=== PATIENT | male | born 1955 | race Caucasian/White ===

== ENCOUNTER 2019-03-14 08:54 | Inpatient (IN) | payer MEDICARE ==
--- NOTE | 2019-03-14 09:34 | ER Document Report ---
HPI - HPI Time Seen by Provider: 03/14/19 09:08 Pain Level: 3 Vertical Provider Document - INFECTION CONTROL TRAVEL OUTSIDE OF THE [place] IN LAST 30 DAYS: No Course - Vital Signs Vital signs: Temp Pulse Resp BP Pulse Ox 97.7 F 90 20 152/61 H 92 03/14/19 09:01 03/14/19 09:01 03/14/19 09:01 03/14/19 09:01 03/14/19 09:01 Discharge - Discharge Referrals: LOCAL,NO [Primary Care Provider] - Follow up as needed
--- NOTE | 2019-03-14 09:43 | ER Document Report ---
ED Medical Screen (RME) - General Chief Complaint: Fall Injury Stated Complaint: FALL Time Seen by Provider: 03/14/19 09:08 Primary Care Provider: ARLENE OCONNELL [Primary Care Provider] - Follow up as needed Notes: Patient is a 63-year-old male brought in by ambulance who presents emergency department with a chief complaint of left rib pain. He states that his whole left side of his chest hurts. He fell on on the armrest of a couch. He states that he has had a hard time breathing since then. States that this morning he started breathing differently. Admits to having cold chills and sweats yesterday. Friends were at bedside state that he is breathing differently today than he was yesterday and sounds a little more "gurgly" in his breath sounds. Patient is an every day smoker and he smokes 1 pack/day. He states that he used to smoke 4 packs a day. Patient has a history of myocardial infarction 2016. He has not seen a primary care doctor in over 30 years. Exam: Coarse breath sounds noted throughout all lung mack. I have greeted and performed a rapid initial assessment of this patient. A comprehensive ED assessment and evaluation of the patient, analysis of test results and completion of medical decision making process will be conducted by an additional ED providers. TRAVEL OUTSIDE OF THE [place] IN LAST 30 DAYS: No - Related Data Allergies/Adverse Reactions: No Known Allergies Allergy (Verified 03/14/19 08:55) Physical Exam - Vital signs Vitals: Temp Pulse Resp BP Pulse Ox 97.7 F 90 20 152/61 H 92 03/14/19 09:01 03/14/19 09:01 03/14/19 09:01 03/14/19 09:01 03/14/19 09:01 Course - Vital Signs Vital signs: Temp Pulse Resp BP Pulse Ox 97.7 F 90 20 152/61 H 92 03/14/19 09:01 03/14/19 09:01 03/14/19 09:01 03/14/19 09:01 03/14/19 09:01 Doctor's Discharge - Discharge Referrals: ARLENE OCONNELL [Primary Care Provider] - Follow up as needed
--- NOTE | 2019-03-14 10:07 | RADIOLOGY REPORT (SQ) ---
EXAM DESCRIPTION: RIBS LEFT W/PA CHEST COMPLETED DATE/TIME: 03/14/2019 9:50 am REASON FOR STUDY: fall; rib pain COMPARISON: None. TECHNIQUE: Frontal view of the chest and additional views of the left ribs acquired. NUMBER OF VIEWS: Three view. LIMITATIONS: None. FINDINGS: FRONTAL CXR: No pneumothorax. No pleural effusion. No atelectasis or infiltrates. RIBS: No displaced rib fractures. No lytic or blastic bony lesions. OTHER: No other significant finding. IMPRESSION: NO PNEUMOTHORAX. NO DISPLACED RIB FRACTURES. COMMENT: SITE OF TRAUMA/COMPLAINT MARKED/STAMP COMPLETED: No TECHNICAL DOCUMENTATION: JOB ID: [id number] QA on Request- All Rights Reserved Reading location - IP/workstation name: [email or web address]
[2019-03-14] MEDS ORDERED: IPRATROPIUM/ALBUTEROL 0.5-2.5 MG/3 ML AMPUL NEB ONE ×2 (10:15→14:53)
[2019-03-14] MEDS ORDERED: ONDANSETRON HCL INJ/PF 4 MG/2 ML SDV IV ONE (10:15)
[2019-03-14] MEDS ORDERED: MORPHINE SULFATE 10 MG/ML INJ IV ONE (10:15)
[2019-03-14] MEDS ORDERED: KETOROLAC TROMETHAMINE INJ/PF 30 MG/1 ML SDV IV ONE (10:16)
--- NOTE | 2019-03-14 10:51 | RADIOLOGY REPORT (SQ) ---
EXAM DESCRIPTION: CT CHEST WITHOUT COMPLETED DATE/TIME: 03/14/2019 10:30 am REASON FOR STUDY: chest pain rhonchi COMPARISON: Chest radiograph TECHNIQUE: CT scan performed of the chest without intravenous contrast. Images reviewed with lung, soft tissue and bone windows. Reconstructed coronal and sagittal MPR images reviewed. All images st ored on PACS. All CT scanners at this facility use dose modulation, iterative reconstruction, and/or weight based d osing when appropriate to reduce radiation dose to as low as reasonably achievable (ALARA). [facility]: Dose Right [facility]: CareDose [facility]: Dose Right [facility]: Teradose 4D [facility]: Smart Crucell RADIATION DOSE: CT Rad equipment meets quality standard of care and radiation dose reduction techniq ues were employed. CTDIvol: 17.6 mGy. DLP: 665 mGy-cm. mGy. LIMITATIONS: No technical limitations. FINDINGS: LUNGS AND PLEURA: There are patchy parenchymal opacities with tree-in-bud appearance at carlos th lung bases. No effusions. No pneumothorax. HILAR AND MEDIASTINAL STRUCTURES: No identified masses or abnormal nodes. No obvious aneurysm. HEART AND VASCULAR STRUCTURES: No aneurysm. No pericardial effusion. Moderate coronary artery calci fication. UPPER ABDOMEN: No significant findings. Limited exam. THYROID AND OTHER SOFT TISSUES: No masses. No adenopathy. BONES: No significant finding. HARDWARE: None in the chest. OTHER: No other significant findings. IMPRESSION: Bibasilar parenchymal opacities with a typical appearance of an inflammatory or infectio us process. No identified rib fractures. Moderate coronary artery calcification. TECHNICAL DOCUMENTATION: JOB ID: [id number] Quality ID # [id number]: Final reports with documentation of one or more dose reduction techniques (e.g., Au tomated exposure control, adjustment of the mA and/or kV according to patient size, use of iterative reconstruction technique) 2010 [employer] All Rights Reserved Reading location - IP/workstation name: [email or web address]
[2019-03-14 10:58] LABS: ABSOLUTE LYMPHOCYTES (AUTO) 1.1 10^3/uL (0.5-4.7); ABSOLUTE MONOCYTES (AUTO) 0.9 10^3/uL (0.1-1.4); ABSOLUTE NEUT (AUTO) 12.4 10^3/uL (1.7-8.2); BASOPHILS % (AUTO) 0.3 % (0-2); EOSINOPHILS % (AUTO) 0.2 % (0-6); HEMATOCRIT 45.5 % (37.9-51.0); LYMPHOCYTES % (AUTO) 7.6 % (13-45); MEAN CORPUSCULAR HEMOGLOBIN 30.4 pg (27.0-33.4); MEAN CORPUSCULAR VOLUME 92 fl (80-97); MONOCYTES % (AUTO) 6.4 % (3-13); PLATELET COUNT 212 10^3/uL (150-450); RED BLOOD COUNT 4.95 10^6/uL (4.35-5.55); RED CELL DISTRIBUTION WIDTH 14.2 % (11.5-14.0); SEGMENTED NEUTROPHILS % (AUTO) 85.5 % (42-78); TOTAL CELLS COUNTED % (AUTO) 100 %; WHITE BLOOD COUNT 14.5 10^3/uL (4.0-10.5)
[2019-03-14 11:00] LABS: ALANINE AMINOTRANSFERASE 38 U/L (21-72); ALBUMIN 4.1 g/dL (3.5-5.0); ALKALINE PHOSPHATASE 75 U/L (38-126); ANION GAP 13 (5-19); ASPARTATE AMINO TRANSFERASE 34 U/L (17-59); BILIRUBIN,DIRECT 0.5 mg/dL (0.0-0.4); BLOOD UREA NITROGEN 17 mg/dL (7-20); CARBON DIOXIDE 27 mmol/L (22-30); CHLORIDE 101 mmol/L (98-107); CREATINE KINASE 410 U/L (55-170); GLUCOSE 121 mg/dL (75-110); POTASSIUM 4.4 mmol/L (3.6-5.0)
[2019-03-14 11:11] LABS: CREATINE KINASE MB 3.42 ng/mL (<4.55)
[2019-03-14 11:16] LABS: TROPONIN I < 0.012 ng/mL
--- NOTE | 2019-03-14 12:51 | ER Document Report ---
ED General - General Chief Complaint: Fall Injury Stated Complaint: FALL Time Seen by Provider: 03/14/19 09:08 Mode of Arrival: Ambulatory Information source: Patient Notes: 63-year-old male with a 20+ pack year smoking history presents with left-sided rib pain that started 3 days prior to arrival. Patient states that he tripped and fell striking his left chest wall against an arm chair. He denies head injury, loss of consciousness. He states since that time he has had pain with deep inspiration, coughing. Patient does smoke 1 pack/day states that this is a decrease from 4 packs/day. Patient has had associated productive cough, shortness of breath, chills. TRAVEL OUTSIDE OF THE [place] IN LAST 30 DAYS: No - HPI Onset: Other Onset/Duration: Gradual, Persistent, Worse Quality of pain: Stabbing, Throbbing Severity: Severe Pain Level: 3 Associated symptoms: Body/muscle aches, Chest pain, Productive cough, Hurts to breath, Shortness of breath. denies: Leg swelling, Nausea, Vomiting Exacerbated by: Movement, Walking, Coughing, Deep breathing Relieved by: Denies Similar symptoms previously: No Recently seen / treated by doctor: No - Related Data Allergies/Adverse Reactions: No Known Allergies Allergy (Verified 03/14/19 08:55) Past Medical History - General Information source: Patient, [facility] Records - Social History Smoking Status: Current Every Day Smoker Cigarette use (# per day): Yes - 20 Smoking Education Provided: Yes - Smoking cessation counseling was provided for 4 minutes at the bedside Frequency of alcohol use: None Drug Abuse: None Lives with: Alone Family History: Reviewed & Not Pertinent Patient has suicidal ideation: No Patient has homicidal ideation: No Pulmonary Medical History: Reports: Hx COPD Renal/ Medical History: Denies: Hx Peritoneal Dialysis Review of Systems - Review of Systems Constitutional: Chills, Malaise, Weakness EENT: denies: Blurred vision Cardiovascular: Chest pain. denies: Palpitations, Edema Respiratory: Cough, Hurts to breathe, Short of breath, Wheezing Gastrointestinal: denies: Abdominal pain, Nausea, Vomiting Genitourinary: Flank pain. denies: Dysuria Male Genitourinary: No symptoms reported Musculoskeletal: Muscle pain. denies: Joint swelling Skin: denies: Rash Hematologic/Lymphatic: denies: Swollen glands Neurological/Psychological: denies: Weakness, Headaches -: Yes All other systems reviewed and negative Physical Exam - Vital signs Vitals: Temp Pulse Resp BP Pulse Ox 97.7 F 90 20 152/61 H 92 03/14/19 09:01 03/14/19 09:01 03/14/19 09:01 03/14/19 09:01 03/14/19 09:01 - Notes Notes: PHYSICAL EXAMINATION: GENERAL: Well-appearing, well-nourished and in no acute distress. HEAD: Atraumatic, normocephalic. EYES: Pupils equal round and reactive to light, extraocular movements intact, sclera anicteric, conjunctiva are normal. ENT: Nares patent, oropharynx clear without exudates. Moist mucous membranes. NECK: Normal range of motion, supple without lymphadenopathy LUNGS: Bilateral rhonchi, diffuse wheezing, hypoxic on nasal cannula, no ac cessory muscle use, no increased work of breathing. Left chest wall without ecchymosis but tender with palpation. No crepitus HEART: Regular rate and rhythm without murmurs ABDOMEN: Soft, nontender, nondistended abdomen. No guarding, no rebound. No masses appreciated. Musculoskeletal: Normal range of motion, no pitting or edema. No cyanosis. NEUROLOGICAL: Cranial nerves grossly intact. Normal speech, normal gait. Normal sensory, motor exams PSYCH: Normal mood, normal affect. SKIN: Warm, Dry, normal turgor, no rashes or lesions noted. Course - Re-evaluation Re-evalutation: 03/14/19 12:50 Laboratory 03/14/19 03/14/19 03/14/19 10:14 10:14 10:54 WBC 14.5 H RBC 4.95 Hgb 15.0 Hct 45.5 MCV 92 MCH 30.4 MCHC 33.0 RDW 14.2 H Plt Count 212 Seg Neutrophils % 85.5 H Lymphocytes % 7.6 L Monocytes % 6.4 Eosinophils % 0.2 Basophils % 0.3 Absolute Neutrophils 12.4 H Absolute Lymphocytes 1.1 Absolute Monocytes 0.9 Absolute Eosinophils 0.0 Absolute Basophils 0.0 Sodium 141.0 Potassium 4.4 Chloride 101 Carbon Dioxide 27 Anion Gap 13 BUN 17 Creatinine 1.37 H Est GFR ( Amer) > 60 Est GFR (Non-Af Amer) 53 L Glucose 121 H Calcium 9.0 Total Bilirubin 1.0 Direct Bilirubin 0.5 H Neonat Total Bilirubin Not Reportable Neonat Direct Bilirubin Not Reportable Neonat Indirect Bili Not Reportable AST 34 ALT 38 Alkaline Phosphatase 75 Creatine Kinase 410 H CK-MB (CK-2) 3.42 Troponin I < 0.012 Total Protein 7.0 Albumin 4.1 03/14/19 14:11 Ribs w/Chest X-Ray 03/14/19 09:40 IMPRESSION: NO PNEUMOTHORAX. NO DISPLACED RIB FRACTURES. Chest CT 03/14/19 10:15 IMPRESSION: Bibasilar parenchymal opacities with a typical appearance of an inflammatory or infectious process. No identified rib fractures. Moderate coronary artery calcification. 63-year-old male presents with left-sided chest pain after a trip and fall 3 days ago. Vital signs reviewed and patient is hypoxic on room air. Lung exam is significant for bilateral rhonchi, diffuse wheezing. Patient was placed on nasal cannula and now has an oxygen saturation of 92% on 3 L. Patient did receive breathing treatments and on reevaluation states that his shortness of breath has improved. CT of the chest was obtained and concerning for bibasilar pneumonia. Ceftriaxone was given for this. Patient also received Solu-Medrol. Patient does have a mild leukocytosis of 14. CMP does show a mild TERRELL with a creatinine of 1.35. Cardiac enzymes within normal limits. ABG unremarkable. Because of the patient's persistent hypoxia I did discuss admission with Dr. Trujillo who has agreed to see the patient. Patient agreeable to admission. Patient has been admitted to telemetry. 03/14/19 14:51 03/14/19 19:52 - Vital Signs Vital signs: Temp Pulse Resp BP Pulse Ox 98.4 F 75 18 136/91 H 93 03/14/19 17:53 03/14/19 19:23 03/14/19 19:23 03/14/19 17:53 03/14/19 19:23 - Laboratory Result Diagrams: 03/14/19 10:14 03/14/19 10:14 Laboratory results interpreted by me: 03/14/19 03/14/19 10:14 10:14 WBC 14.5 H RDW 14.2 H Seg Neutrophils % 85.5 H Lymphocytes % 7.6 L Absolute Neutrophils 12.4 H Creatinine 1.37 H Est GFR (Non-Af Amer) 53 L Glucose 121 H Direct Bilirubin 0.5 H Creatine Kinase 410 H - Diagnostic Test Radiology reviewed: Image reviewed, Reports reviewed - EKG Interpretation by Me EKG shows normal: Sinus rhythm Rate: Normal [place]/QRS: Left axis deviation When compared to previous EKG there are: Previous EKG unavailable Discharge - Discharge Clinical Impression: COPD exacerbation, Hypoxia, Tobacco dependence Pneumonia Qualifiers: Pneumonia type: due to unspecified organism Laterality: bilateral Lung location: unspecified part of lung Qualified Code(s): J18.9 - Pneumonia, unspecified organism Contusion of rib on left side Qualifiers: Encounter type: initial encounter Qualified Code(s): S20.212A - Contusion of left front wall of thorax, initial encounter Condition: Good Disposition: ADMITTED INPATIENT Admitting Provider: Ronnie (Hospitalist) Unit Admitted: Telemetry
[2019-03-14] MEDS ORDERED: CEFTRIAXONE 1 GM/D5W RTU 1 GM/50 ML RTUPB IV ONE (13:00)
[2019-03-14 13:45] LABS: VENOUS BLOOD BASE EXCESS -1.6 mmol/L; VENOUS BLOOD HCO3 25.4 mmol/L (20-32); VENOUS BLOOD PCO2 51.8 mmHg (35-63); VENOUS BLOOD PH 7.31 (7.30-7.42)
[2019-03-14] MEDS ORDERED: RINGERS SOLUTION,LACTATED 1,000 ML IV ONE (14:52)
[2019-03-14] MEDS ORDERED: METHYLPREDNISOLONE INJ 125 MG/2 ML SDV IV ONE (14:53)
[2019-03-14] MEDS ORDERED: GUAIFENESIN SYRP 200 MG/10 ML UDC PO PRN (15:25)
[2019-03-14] MEDS ORDERED: ACETAMINOPHEN 325 MG TABLET PO PRN (15:25)
[2019-03-14] MEDS ORDERED: LEVALBUTEROL HCL NEB 1.25 MG/3 ML AMPUL NEB PRN (15:25)
[2019-03-14] MEDS ORDERED: BISACODYL 5 MG TABEC PO ONE (17:54)
[2019-03-14] MEDS ORDERED: BISACODYL 5 MG TABEC PO PRN (17:54)
[2019-03-14] MEDS ORDERED: BISACODYL 10 MG SUPP.RECT PR PRN (17:54)
[2019-03-14] MEDS: IPRATROPIUM/ALBUTEROL 0.5-2.5 MG/3 ML AMPUL NEB SCH ×3 (19:23→23:47)
[2019-03-14] MEDS: BUDESONIDE NEB 0.5 MG/2 ML AMPUL NEB SCH (19:23)
[2019-03-14] MEDS: FAMOTIDINE 20 MG TABLET PO SCH (22:49)
[2019-03-14] MEDS: GUAIFENESIN 600 MG TABLET.SA PO SCH (22:49)
[2019-03-14] MEDS: METHYLPREDNISOLONE INJ 125 MG/2 ML SDV IV SCH (22:49)
[2019-03-14] MEDS: DOCUSATE SODIUM 100 MG CAPSULE PO PRN (22:55)
--- NOTE | 2019-03-14 22:57 | EKG REPORT ---
SEVERITY:- ABNORMAL ECG - SINUS RHYTHM LEFT AXIS DEVIATION ABNRM R PROG, CONSIDER ASMI OR LEAD PLACEMENT : Confirmed by: Rocio Alves 14-Mar-2019 22:57:17
[2019-03-14] MEDS ORDERED: OXYCODONE-ACETAMINOPHEN 5-325 MG TABLET PO PRN ×2 (23:36)
--- NOTE | 2019-03-14 23:39 | PDOC H&P ---
History of Present Illness Admission Date/PCP: 03/14/19 15:19 NO LOCALMD Patient complains of: Increased shortness of breath with pleuritic pain History of Present Illness: SARA MARTEL is a garrulous 63 year old male sitting on the bed getting a nebulizer treatment. He is extremely talkative. Coarse rhonchi are audible. Patient reports that he has bad knees. He stumbled and fell and hit his left side on the arm of the couch on . He stated that Saturday morning approximately 3 AM he experienced shaking chills. His left ribs have been very sore. He developed increasing shortness of breath and a congested cough. When he realized that his shortness of breath was worsening and his left chest pain/rib pain was not getting better he decided to present to the emergency department. Assessment revealed acute kidney injury, hypoxic respiratory failure and pneumonia. He had an elevated white blood cell count. He was referred to the hospital service for admission. Past Medical History Cardiac Medical History: Reports: Coronary Artery Disease, Myocardial Infarction - 3 years ago with stent placement Pulmonary Medical History: Reports: Chronic Obstructive Pulmonary Disease (COPD) Musculoskeltal Medical History: Reports: Other - Right hand injury with right fifth finger contracture mild Psychiatric Medical History: Reports: Tobacco Dependency Past Surgical History Past Surgical History: Reports: Cardiac Catheterization - With stent placement Social History Information Source: Patient Lives with: Alone - Currently single Smoking Status: Current Every Day Smoker Cigarettes Packs Per Day: 1 - Down from 4 packs/day Frequency of Alcohol Use: None Hx Recreational Drug Use: Yes Drugs: Marijuana Hx Prescription Drug Abuse: No - Advance Directive Resuscitation Status: Do Not Resuscitate Surrogate healthcare decision maker:: No healthcare documentation in place. He did not indicate the designated d ecision maker. Family History Family History: CAD, Other - Suicide Parental Family History Reviewed: Yes Children Family History Reviewed: NA Sibling(s) Family History Reviewed.: Yes Medication/Allergy Home Medications: No Home Medications 03/14/19 Allergies/Adverse Reactions: No Known Allergies Allergy (Verified 03/14/19 08:55) Review of Systems All systems: reviewed and no additional remarkable complaints except as stated Respiratory: PRESENT: cough, dyspnea Gastrointestinal: PRESENT: constipation Musculoskeletal: PRESENT: other - Left rib pain Physical Exam Vital Signs: Temp Pulse Resp BP Pulse Ox 97.7 F 90 20 107/57 L 90 L 0504/19 09:01 03/14/19 09:01 03/14/19 13:02 03/14/19 13:02 03/14/19 13:02 Intake & Output 03/13/19 03/14/19 03/15/19 06:59 06:59 06:59 Weight 117.934 kg General appearance: PRESENT: cooperative, mild distress - Audible rhonchi, obese, well-developed Head exam: PRESENT: atraumatic, normocephalic Eye exam: PRESENT: conjunctiva pink, EOMI. ABSENT: scleral icterus Ear exam: PRESENT: normal external ear exam Mouth exam: PRESENT: dry mucosa, tongue midline Teeth exam: ABSENT: dental tenderness, edentulous Neck exam: PRESENT: full ROM. ABSENT: carotid bruit, JVD, lymphadenopathy, tenderness Respiratory exam: PRESENT: prolonged expiratory phas, rhonchi - Coarse rhonchi bilaterally, symmetrical, tachypnea, wheezes. ABSENT: accessory muscle use, r ales Cardiovascular exam: PRESENT: RRR, +S1, +S2. ABSENT: diastolic murmur, rubs, systolic murmur, tachycardia GI/Abdominal exam: PRESENT: normal bowel sounds, soft, other - Protuberant abdomen. ABSENT: guarding, tenderness Rectal exam: PRESENT: deferred Extremities exam: ABSENT: calf tenderness, clubbing, pedal edema Musculoskeletal exam: PRESENT: ambulatory, normal inspection, other - Slight contracture of the right fifth finger Neurological exam: PRESENT: alert, awake, oriented to person, oriented to place, oriented to time, oriented to situation, CN II-XII grossly intact. ABSENT: motor sensory deficit Psychiatric exam: PRESENT: appropriate affect, normal mood. ABSENT: agitated, anxious Focused psych exam: ABSENT: delusional Skin exam: PRESENT: dry, normal color, warm. ABSENT: rash Results Laboratory Results: 03/14/19 10:14 03/14/19 10:14 03/14/19 03/14/19 03/14/19 10:14 10:14 13:30 WBC 14.5 H RBC 4.95 Hgb 15.0 Hct 45.5 MCV 92 MCH 30.4 MCHC 33.0 RDW 14.2 H Plt Count 212 Seg Neutrophils % 85.5 H Lymphocytes % 7.6 L Monocytes % 6.4 Eosinophils % 0.2 Basophils % 0.3 Absolute Neutrophils 12.4 H Absolute Lymphocytes 1.1 Absolute Monocytes 0.9 Absolute Eosinophils 0.0 Absolute Basophils 0.0 VBG pH 7.31 VBG pCO2 51.8 VBG HCO3 25.4 VBG Base Excess -1.6 Sodium 141.0 Potassium 4.4 Chloride 101 Carbon Dioxide 27 Anion Gap 13 BUN 17 Creatinine 1.37 H Est GFR ( Amer) > 60 Est GFR (Non-Af Amer) 53 L Glucose 121 H Calcium 9.0 Total Bilirubin 1.0 AST 34 ALT 38 Alkaline Phosphatase 75 Total Protein 7.0 Albumin 4.1 03/14/19 03/14/19 10:14 10:54 Creatine Kinase 410 H CK-MB (CK-2) 3.42 Troponin I < 0.012 Impressions: Ribs w/Chest X-Ray 03/14/19 09:40 IMPRESSION: NO PNEUMOTHORAX. NO DISPLACED RIB FRACTURES. Chest CT 03/14/19 10:15 IMPRESSION: Bibasilar parenchymal opacities with a typical appearance of an inflammatory or infectious process. No identified rib fractures. Moderate coronary artery calcification. Assessment and Plan - Diagnosis (1) Acute on chronic respiratory failure with hypoxia Is this a current diagnosis for this admission?: Yes Plan: At this point it does not appear that the patient needs BiPAP. Supplemental oxygen and utilize BiPAP if necessary. We will try to maintain oxygenation saturation 90 to 94%. (2) COPD exacerbation Is this a current diagnosis for this admission?: Yes Plan: The patient smokes 1 pack of cigarettes daily this is down from 4 packs. He does not use oxygen at home and is not on any and. In fact he hardly sees a doctor. He last saw for his myocardial infarction 3 years ago. We will utilize systemic steroids, nebulizer treatments and oxygen supplementation as well as antibiotics for pneumonia. (3) Pneumonia Qualifiers: Pneumonia type: due to unspecified organism Laterality: bilateral Lung location: unspecified part of lung Qualified Code(s): J18.9 - Pneumonia, unspecified organism Is this a current diagnosis for this admission?: Yes Plan: This is a community-acquired pneumonia most likely pneumococcal. I have asked for a sputum culture if possible. Blood cultures have been drawn. He will be on ceftriaxone and azithromycin at this time. Area goal will be to wean him from oxygen. My guess is that he should be on inhaler therapy for his COPD. We will address this when he is closer to discharge. (4) Contusion of rib on left side Qualifiers: Encounter type: initial encounter Qualified Code(s): S20.212A - Contusion of left front wall of thorax, initial encounter Is this a current diagnosis for this admission?: Yes Plan: The patient has tenderness but there is no evidence of fracture on x-ray. Creatinine kinase is elevated so this is likely soft tissue damage. Will treat conservatively. (5) Tobacco dependence Is this a current diagnosis for this admission?: Yes Plan: I did offer on the patient declined a nicotine patch. He reports that he stopped smoking for whole year and then resumed it. We will continue to encourage tobacco cessation. (6) Constipation Qualifiers: Constipation type: slow transit constipation Qualified Code(s): K59.01 - Slow transit constipation Is this a current diagnosis for this admission?: Yes Plan: The patient reports that it is not uncommon for him not to have a bowel movement for a week. I told him that this is not healthy. Will utilize stool softeners and laxatives during this admission to achieve regularity. (7) Obesity (BMI 30-39.9) Is this a current diagnosis for this admission?: Yes Plan: We will try to encourage weight loss and an exercise program upon discharge. Consider pulmonary rehab. (8) Coronary artery disease Qualifiers: Coronary Disease-Associated Artery/Lesion type: [place] artery [place] vs. transplanted heart: [place] heart Associated angina: without angina Qualified Code(s): I25.10 - Atherosclerotic heart disease of [place] coronary artery without angina pectoris Is this a current diagnosis for this admission?: Yes Plan: Patient has a history of myocardial infarction with stent placement. He is not on any medications. I will check a lipid panel. I will try and encourage aspirin, statin and beta-moe therapy. He is not very compliant and so this may not be successful. - Time Time Spent with patient: 65 minutes Time Spent with patient: 35 or more minutes Smoking Cessation Education: 3 to 10 minutes Medications reviewed and adjusted accordingly: Yes Anticipated discharge: Home - Inpatient Certification Based on my medical assessment, after consideration of the patient's comorbidities, presenting symptoms, or acuity I expect that the services needed warrant INPATIENT care.: Yes I certify that my determination is in accordance with my understanding of Medicare's requirements for reasonable and necessary INPATIENT services [42 CFR 412.3e].: Yes Medical Necessity: Need Close Monitoring Due to Risk of Patient Decompensation, Need For Continuous Telemetry Monitoring, Need for Nebulizer Therapy and Monitoring of Response, Need for Pain Control, Need for IV Antibiotics, Risk of Complication if Not Cared For in Hospital
[2019-03-15] MEDS: IPRATROPIUM/ALBUTEROL 0.5-2.5 MG/3 ML AMPUL NEB SCH ×4 (03:56→19:28)
[2019-03-15 04:12] LABS: HEMOGLOBIN 13.2 g/dL (13.5-17.0); MEAN CORPUSCULAR HEMOGLOBIN 30.7 pg (27.0-33.4); MEAN CORPUSCULAR HGB CONC 33.8 g/dL (32.0-36.0); MEAN CORPUSCULAR VOLUME 91 fl (80-97); PLATELET COUNT 168 10^3/uL (150-450); RED CELL DISTRIBUTION WIDTH 13.8 % (11.5-14.0); WHITE BLOOD COUNT 10.6 10^3/uL (4.0-10.5)
[2019-03-15 04:42] LABS: ANION GAP 13 (5-19); BLOOD UREA NITROGEN 22 mg/dL (7-20); CALCIUM 8.7 mg/dL (8.4-10.2); CARBON DIOXIDE 23 mmol/L (22-30); CHLORIDE 101 mmol/L (98-107); GLUCOSE 225 mg/dL (75-110); POTASSIUM 4.2 mmol/L (3.6-5.0); TRIGLYCERIDES 67 mg/dL (<150)
[2019-03-15 04:43] LABS: ABSOLUTE LYMPHOCYTES# (MANUAL) 0.4 10^3/uL (0.5-4.7); ABSOLUTE MONOCYTES # (MANUAL) 0.1 10^3/uL (0.1-1.4); ABSOLUTE NEUTROPHILS# (MANUAL) 10.1 10^3/uL (1.7-8.2); BAND NEUTROPHILS % (MANUAL) 2 % (3-5); BASOPHILS % (MANUAL) 0 % (0-2); EOSINOPHILS % (MANUAL) 0 % (0-6); LYMPHOCYTES % (MANUAL) 4 % (13-45); MONOCYTES % (MANUAL) 1 % (3-13); SEGMENTED NEUTROPHILS % (MAN) 93 % (42-78); TOTAL CELLS COUNTED 100
[2019-03-15 04:44] LABS: HYPERSEGMENTED NEUTROPHILS PRESENT
[2019-03-15 04:45] LABS: PLATELET COMMENT ADEQUATE; RBC MORPHOLOGY COMMENT NORMO-CYTIC/CHROMIC; TOXIC GRANULATION SLIGHT
[2019-03-15 04:53] LABS: DIRECT LDL 81 mg/dL (<100)
[2019-03-15] MEDS: METHYLPREDNISOLONE INJ 125 MG/2 ML SDV IV SCH ×3 (05:27→22:25)
[2019-03-15] MEDS: BUDESONIDE NEB 0.5 MG/2 ML AMPUL NEB SCH ×2 (08:09→19:28)
[2019-03-15] MEDS ORDERED: CEFTRIAXONE 1 GM/D5W RTU 50 ML IV SCH (10:00)
[2019-03-15] MEDS: ENOXAPARIN SODIUM INJ 40 MG/0.4 ML DISP.SYRIN SUBCUT SCH (10:20)
[2019-03-15] MEDS: GUAIFENESIN 600 MG TABLET.SA PO SCH ×2 (10:20→22:23)
[2019-03-15] MEDS: POLYETHYLENE GLYCOL 3350 POWDER 17 GM/1 PACKET PO SCH (10:20)
[2019-03-15] MEDS: FAMOTIDINE 20 MG TABLET PO SCH ×2 (10:20→22:23)
[2019-03-15] MEDS: CEFTRIAXONE SODIUM 1,000 MG in NORMAL SALINE 50 ML IV SCH (10:31)
[2019-03-15] MEDS: AZITHROMYCIN 500 MG in DEXTROSE 5%-WATER 250 ML IV SCH (11:27)
--- NOTE | 2019-03-15 15:25 | PDOC PROGRESS REPORT ---
Subjective Progress Note for:: 03/15/19 Subjective:: The patient is doing better today. At the time of admission his rhonchi were audible several feet away. His breathing is more comfortable this morning. He still requires oxygen supplementation. He is in good spirits this morning and acknowledges the improvement. He still has a congested cough but he has not been able to produce a sputum sample. Reason For Visit: PNEUMONIA Physical Exam Vital Signs: Temp Pulse Resp BP Pulse Ox 98.1 F 91 18 153/50 H 92 03/15/19 12:00 03/15/19 12:27 03/15/19 12:27 03/15/19 12:00 03/15/19 12:27 Pulse Oximeter Continuous Start: 03/14/19 15:27 Freq: RTQ4 Status: Active Protocol: Document 03/15/19 12:27 [facility] (Rec: 03/15/19 12:28 [facility] [id number]) Pulse Oximetry Assessment Oxygen Saturation (92-100) 92 Oxygen Flow Rate (L/min) 3 Oxygen Delivery Method Nasal Cannula Fraction of Inspired Oxygen (FIO2) 32 Equipment Usage Equipment in Use Continuous SpO2 Machine # N4 Intake & Output 03/14/19 03/15/19 03/16/19 06:59 06:59 06:59 Intake Total 1050 300 Balance 1050 300 Weight 118.9 kg General appearance: PRESENT: cooperative, mild distress, obese, well-developed Head exam: PRESENT: atraumatic, normocephalic Eye exam: PRESENT: conjunctiva pink. ABSENT: scleral icterus Ear exam: PRESENT: normal external ear exam Mouth exam: PRESENT: dry mucosa, tongue midline Teeth exam: PRESENT: poor dentation Neck exam: PRESENT: full ROM. ABSENT: carotid bruit, JVD, lymphadenopathy Respiratory exam: PRESENT: chest wall tenderness - On the left. Subtle signs of contusion., rhonchi - Bilateral, symmetrical, unlabored, wheezes - Occasional expiratory wheeze. ABSENT: accessory muscle use, rales, stridor, tachypnea Cardiovascular exam: PRESENT: RRR, +S1, +S2. ABSENT: diastolic murmur, systolic murmur GI/Abdominal exam: PRESENT: distended - He has a protuberant abdomen, normal bowel sounds, soft. ABSENT: tenderness Rectal exam: PRESENT: deferred, other - No bowel movement yet Gentrourinary exam: ABSENT: indwelling catheter Extremities exam: PRESENT: full ROM. ABSENT: calf tenderness, pedal edema Musculoskeletal exam: PRESENT: ambulatory Neurological exam: PRESENT: alert, awake, oriented to person, oriented to place, oriented to time, oriented to situation, CN II-XII grossly intact. ABSENT: motor sensory deficit Psychiatric exam: PRESENT: normal mood. ABSENT: agitated, anxious Focused psych exam: ABSENT: delusional, restlessness Results Laboratory Results: 03/15/19 03:20 03/15/19 03:20 03/14/19 03/15/19 03/15/19 13:30 03:20 03:20 WBC 10.6 H RBC 4.30 L Hgb 13.2 L Hct 39.0 MCV 91 MCH 30.7 MCHC 33.8 RDW 13.8 Plt Count 168 Seg Neutrophils % Not Reportable Lymphocytes % Not Reportable Monocytes % Not Reportable Eosinophils % Not Reportable Basophils % Not Reportable Absolute Neutrophils Not Reportable Absolute Lymphocytes Not Reportable Absolute Monocytes Not Reportable Absolute Eosinophils Not Reportable Absolute Basophils Not Reportable VBG pH 7.31 VBG pCO2 51.8 VBG HCO3 25.4 VBG Base Excess -1.6 Sodium 137.0 Potassium 4.2 Chloride 101 Carbon Dioxide 23 Anion Gap 13 BUN 22 H Creatinine 1.30 H Est GFR ( Amer) > 60 Est GFR (Non-Af Amer) 56 L Glucose 225 H Calcium 8.7 Triglycerides 67 Cholesterol 128.10 LDL Cholesterol Direct 81 VLDL Cholesterol 13.0 HDL Cholesterol 45 03/14/19 03/14/19 03/14/19 10:14 10:54 18:13 Creatine Kinase 410 H CK-MB (CK-2) 3.42 Troponin I < 0.012 < 0.012 03/15/19 00:46 Creatine Kinase CK-MB (CK-2) Troponin I < 0.012 Impressions: Ribs w/Chest X-Ray 03/14/19 09:40 IMPRESSION: NO PNEUMOTHORAX. NO DISPLACED RIB FRACTURES. Chest CT 03/14/19 10:15 IMPRESSION: Bibasilar parenchymal opacities with a typical appearance of an inflammatory or infectious process. No identified rib fractures. Moderate coronary artery calcification. Assessment and Plan - Diagnosis (1) Acute on chronic respiratory failure with hypoxia Is this a current diagnosis for this admission?: Yes Plan: He will continue oxygen supplementation. No BiPAP necessary at this time. Treatment for COPD outlined below. (2) COPD exacerbation Is this a current diagnosis for this admission?: Yes Plan: The patient is on scheduled DuoNeb's and budesonide. He is also on as needed Xopenex. He is receiving IV steroids as well. Continue current regimen. Wean oxygen as tolerated. (3) Pneumonia Qualifiers: Pneumonia type: due to unspecified organism Laterality: bilateral Lung location: unspecified part of lung Qualified Code(s): J18.9 - Pneumonia, unspecified organism Is this a current diagnosis for this admission?: Yes Plan: Community-acquired pneumonia most likely pneumococcal. Continue azithromycin and ceftriaxone. White blood cell count has improved. (4) Contusion of rib on left side Qualifiers: Encounter type: initial encounter Qualified Code(s): S20.212A - Contusion of left front wall of thorax, initial encounter Is this a current diagnosis for this admission?: Yes Plan: Possible discoloration from deep contusion. Still quite tender. Explained how elevated creatinine kinase reflects soft tissue injury. (5) Tobacco dependence Is this a current diagnosis for this admission?: Yes Plan: Nicotine patch was offered. Patient declined. He feels that he can stop smoki ng on his own. He did it once before but returned after a year. He does understand the high risk of tobacco dependence. (6) Constipation Qualifiers: Constipation type: slow transit constipation Qualified Code(s): K59.01 - Slow transit constipation Is this a current diagnosis for this admission?: Yes Plan: He has not had a bowel movement for a week. Medications were started last night. He has not had a bowel movement yet. I have ordered a bottle of mag citrate. (7) Obesity (BMI 30-39.9) Is this a current diagnosis for this admission?: Yes Plan: Encourage healthy diet and exercise. (8) Coronary artery disease Qualifiers: Coronary Disease-Associated Artery/Lesion type: [place] artery [place] vs. transplanted heart: [place] heart Associated angina: without angina Qualified Code(s): I25.10 - Atherosclerotic heart disease of [place] coronary artery without angina pectoris Is this a current diagnosis for this admission?: Yes Plan: His LDL is only 81 with a total cholesterol of 128 which is amazing considering his lifestyle. I will start aspirin therapy daily and low-dose statin. It is questionable whether he will be compliant or not. - Time Time Spent with patient: 15-24 minutes Smoking Cessation Education: 3 to 10 minutes Medications reviewed and adjusted accordingly: Yes Anticipated discharge: Home
[2019-03-15] MEDS ORDERED: MAGNESIUM CITRATE 296 ML BOTTLE PO ONE (16:30)
[2019-03-15] MEDS: ATORVASTATIN CALCIUM 20 MG TABLET PO SCH (22:23)
[2019-03-15] MEDS: ASPIRIN 81 MG TABLET, ENT COATED PO SCH (22:23)
[2019-03-16] MEDS: IPRATROPIUM/ALBUTEROL 0.5-2.5 MG/3 ML AMPUL NEB SCH ×4 (02:07→20:28)
[2019-03-16 05:03] LABS: HEMATOCRIT 37.3 % (37.9-51.0); HEMOGLOBIN 12.4 g/dL (13.5-17.0); MEAN CORPUSCULAR HEMOGLOBIN 30.5 pg (27.0-33.4); MEAN CORPUSCULAR HGB CONC 33.3 g/dL (32.0-36.0); MEAN CORPUSCULAR VOLUME 92 fl (80-97); PLATELET COUNT 197 10^3/uL (150-450); RED BLOOD COUNT 4.07 10^6/uL (4.35-5.55); RED CELL DISTRIBUTION WIDTH 14.2 % (11.5-14.0); WHITE BLOOD COUNT 14.9 10^3/uL (4.0-10.5)
[2019-03-16] MEDS: METHYLPREDNISOLONE INJ 125 MG/2 ML SDV IV SCH ×3 (05:20→22:23)
[2019-03-16 05:26] LABS: ANION GAP 13 (5-19); BLOOD UREA NITROGEN 33 mg/dL (7-20); CALCIUM 8.8 mg/dL (8.4-10.2); CARBON DIOXIDE 25 mmol/L (22-30); CHLORIDE 101 mmol/L (98-107); GLUCOSE 359 mg/dL (75-110); POTASSIUM 4.8 mmol/L (3.6-5.0); SODIUM 139.4 mmol/L (137-145)
[2019-03-16 05:34] LABS: ABSOLUTE LYMPHOCYTES# (MANUAL) 0.4 10^3/uL (0.5-4.7); ABSOLUTE MONOCYTES # (MANUAL) 0.3 10^3/uL (0.1-1.4); ABSOLUTE NEUTROPHILS# (MANUAL) 14.2 10^3/uL (1.7-8.2); BASOPHILS % (MANUAL) 0 % (0-2); EOSINOPHILS % (MANUAL) 0 % (0-6); LYMPHOCYTES % (MANUAL) 3 % (13-45); MONOCYTES % (MANUAL) 2 % (3-13); SEGMENTED NEUTROPHILS % (MAN) 95 % (42-78); TOTAL CELLS COUNTED 100
[2019-03-16 05:35] LABS: PLATELET COMMENT ADEQUATE; RBC MORPHOLOGY COMMENT NORMO-CYTIC/CHROMIC
[2019-03-16] MEDS: BUDESONIDE NEB 0.5 MG/2 ML AMPUL NEB SCH ×2 (07:52→20:28)
[2019-03-16] MEDS: POLYETHYLENE GLYCOL 3350 POWDER 17 GM/1 PACKET PO SCH (09:45)
[2019-03-16] MEDS: GUAIFENESIN 600 MG TABLET.SA PO SCH ×2 (09:45→22:23)
[2019-03-16] MEDS: CEFTRIAXONE SODIUM 1,000 MG in NORMAL SALINE 50 ML IV SCH (09:45)
[2019-03-16] MEDS: FAMOTIDINE 20 MG TABLET PO SCH ×2 (09:45→22:23)
[2019-03-16] MEDS: ENOXAPARIN SODIUM INJ 40 MG/0.4 ML DISP.SYRIN SUBCUT SCH (09:45)
[2019-03-16] MEDS: AZITHROMYCIN 500 MG in DEXTROSE 5%-WATER 250 ML IV SCH (11:14)
--- NOTE | 2019-03-16 15:12 | PDOC PROGRESS REPORT ---
Subjective Progress Note for:: 03/16/19 Subjective:: This is a 61 years old male patient was past medical history of coronary artery disease, myocardial infarction and status post stent placement, COPD and everyday smoker presented with chief complaint of increased shortness of breath was pleuritic chest pain. The pleuritic chest pain is explained by injury to his ribs. His chest x-ray is negative for rib fracture. His chest x- ray was reported as bibasilar parenchymal opacities which is typical appearance of an inflammatory or infectious process. Patient has been started on Zithromax and ceftriaxone. His morning I seen patient propped up in bed he is awake alert oriented. Still he complains of pleuritic chest pain upon deep breathing. Reason For Visit: PNEUMONIA Physical Exam Vital Signs: Temp Pulse Resp BP Pulse Ox 97.5 F 74 16 150/59 H 93 03/16/19 12:00 03/16/19 14:14 03/16/19 14:14 03/16/19 12:00 03/16/19 14:14 Pulse Oximeter Continuous Start: 03/14/19 15:27 Freq: RTQ4 Status: Active Protocol: Document 03/16/19 12:04 [facility] (Rec: 03/16/19 12:04 [facility] [id number]) Pulse Oximetry Assessment Oxygen Saturation (92-100) 93 Oxygen Delivery Method Room Air Fraction of Inspired Oxygen (FIO2) 21 Equipment Usage Equipment in Use Continuous SpO2 Machine # N1 Intake & Output 03/15/19 03/16/19 03/17/19 06:59 06:59 06:59 Intake Total 1050 2510 300 Balance 1050 2510 300 Weight 118.9 kg 121 kg General appearance: PRESENT: no acute distress Head exam: PRESENT: atraumatic Eye exam: PRESENT: conjunctiva pink Mouth exam: PRESENT: moist, tongue midline Neck exam: ABSENT: carotid bruit, JVD, lymphadenopathy, thyromegaly Respiratory exam: PRESENT: crackles Cardiovascular exam: PRESENT: RRR. ABSENT: diastolic murmur, rubs, systolic murmur GI/Abdominal exam: PRESENT: normal bowel sounds, soft. ABSENT: distended, guarding, mass, organolmegaly, rebound, tenderness Neurological exam: PRESENT: alert, awake, oriented to time, oriented to situation Results Laboratory Results: 03/16/19 03:37 03/16/19 03:37 03/16/19 03/16/19 03:37 03:37 WBC 14.9 H RBC 4.07 L Hgb 12.4 L Hct 37.3 L MCV 92 MCH 30.5 MCHC 33.3 RDW 14.2 H Plt Count 197 Seg Neutrophils % Not Reportable Lymphocytes % Not Reportable Monocytes % Not Reportable Eosinophils % Not Reportable Basophils % Not Reportable Absolute Neutrophils Not Reportable Absolute Lymphocytes Not Reportable Absolute Monocytes Not Reportable Absolute Eosinophils Not Reportable Absolute Basophils Not Reportable Sodium 139.4 Potassium 4.8 Chloride 101 Carbon Dioxide 25 Anion Gap 13 BUN 33 H Creatinine 1.23 Est GFR ( Amer) > 60 Est GFR (Non-Af Amer) > 60 Glucose 359 H Calcium 8.8 03/14/19 03/14/19 03/14/19 10:14 10:54 18:13 Creatine Kinase 410 H CK-MB (CK-2) 3.42 Troponin I < 0.012 < 0.012 03/15/19 00:46 Creatine Kinase CK-MB (CK-2) Troponin I < 0.012 Impressions: Ribs w/Chest X-Ray 03/14/19 09:40 IMPRESSION: NO PNEUMOTHORAX. NO DISPLACED RIB FRACTURES. Chest CT 03/14/19 10:15 IMPRESSION: Bibasilar parenchymal opacities with a typical appearance of an inflammatory or infectious process. No identified rib fractures. Moderate coronary artery calcification. Assessment and Plan - Diagnosis (1) Bilateral pneumonia Is this a current diagnosis for this admission?: Yes Plan: His chest x-ray shows bibasilar parenchymal opacity. Patient has been on Zithromax and ceftriaxone. (2) Acute hypoxemic respiratory failure Is this a current diagnosis for this admission?: Yes Plan: Is improving. Continue supplemental oxygen. (3) COPD exacerbation Is this a current diagnosis for this admission?: Yes Plan: Continue supplemental oxygen, bronchodilators and antibiotics (4) Contusion of rib on left side Qualifiers: Encounter type: initial encounter Qualified Code(s): S20.212A - Contusion of left front wall of thorax, initial encounter Is this a current diagnosis for this admission?: Yes Plan: Continue supportive management. (5) Coronary artery disease Is this a current diagnosis for this admission?: Yes Plan: No anginal symptoms. (6) Hypothyroidism Qualifiers: Hypothyroidism type: acquired Qualified Code(s): E03.9 - Hypothyroidism, unspecified Is this a current diagnosis for this admission?: Yes Plan: Continue Synthroid (7) Hypertension Qualifiers: Hypertension type: essential hypertension Qualified Code(s): I10 - Essential (primary) hypertension Is this a current diagnosis for this admission?: Yes Plan: Continue current regimen
[2019-03-16] MEDS: ASPIRIN 81 MG TABLET, ENT COATED PO SCH (22:23)
[2019-03-16] MEDS: ATORVASTATIN CALCIUM 20 MG TABLET PO SCH (22:23)
[2019-03-17] MEDS: IPRATROPIUM/ALBUTEROL 0.5-2.5 MG/3 ML AMPUL NEB SCH ×4 (02:11→19:48)
[2019-03-17 04:46] LABS: HEMATOCRIT 38.8 % (37.9-51.0); HEMOGLOBIN 12.8 g/dL (13.5-17.0); MEAN CORPUSCULAR HEMOGLOBIN 30.4 pg (27.0-33.4); MEAN CORPUSCULAR HGB CONC 33.1 g/dL (32.0-36.0); MEAN CORPUSCULAR VOLUME 92 fl (80-97); PLATELET COUNT 235 10^3/uL (150-450); RED BLOOD COUNT 4.22 10^6/uL (4.35-5.55); RED CELL DISTRIBUTION WIDTH 14.1 % (11.5-14.0); WHITE BLOOD COUNT 14.7 10^3/uL (4.0-10.5)
[2019-03-17 05:05] LABS: ANION GAP 13 (5-19); BLOOD UREA NITROGEN 34 mg/dL (7-20); CARBON DIOXIDE 25 mmol/L (22-30); CHLORIDE 102 mmol/L (98-107); GLUCOSE 316 mg/dL (75-110); POTASSIUM 5.5 mmol/L (3.6-5.0); SODIUM 139.8 mmol/L (137-145)
[2019-03-17 05:27] LABS: ABSOLUTE LYMPHOCYTES# (MANUAL) 1.6 10^3/uL (0.5-4.7); ABSOLUTE MONOCYTES # (MANUAL) 0.3 10^3/uL (0.1-1.4); ABSOLUTE NEUTROPHILS# (MANUAL) 12.8 10^3/uL (1.7-8.2); BAND NEUTROPHILS % (MANUAL) 1 % (3-5); BASOPHILS % (MANUAL) 0 % (0-2); EOSINOPHILS % (MANUAL) 0 % (0-6); LYMPHOCYTES % (MANUAL) 10 % (13-45); MONOCYTES % (MANUAL) 2 % (3-13); SEGMENTED NEUTROPHILS % (MAN) 86 % (42-78); TOTAL CELLS COUNTED 100
[2019-03-17 05:28] LABS: PLATELET COMMENT ADEQUATE; RBC MORPHOLOGY COMMENT MN
[2019-03-17] MEDS: METHYLPREDNISOLONE INJ 125 MG/2 ML SDV IV SCH ×3 (05:53→22:28)
[2019-03-17] MEDS: DOCUSATE SODIUM 100 MG CAPSULE PO PRN (05:54)
[2019-03-17] MEDS: BUDESONIDE NEB 0.5 MG/2 ML AMPUL NEB SCH ×2 (08:09→19:48)
[2019-03-17] MEDS: POLYETHYLENE GLYCOL 3350 POWDER 17 GM/1 PACKET PO SCH (09:10)
[2019-03-17] MEDS: CEFTRIAXONE SODIUM 1,000 MG in NORMAL SALINE 50 ML IV SCH (09:11)
[2019-03-17] MEDS: ENOXAPARIN SODIUM INJ 40 MG/0.4 ML DISP.SYRIN SUBCUT SCH (09:11)
[2019-03-17] MEDS: FAMOTIDINE 20 MG TABLET PO SCH ×2 (09:11→22:28)
[2019-03-17] MEDS: GUAIFENESIN 600 MG TABLET.SA PO SCH ×2 (09:11→22:28)
[2019-03-17] MEDS: MAGNESIUM CITRATE 296 ML BOTTLE PO ONE ×2 (09:23→12:40)
[2019-03-17] MEDS: AZITHROMYCIN 500 MG in DEXTROSE 5%-WATER 250 ML IV SCH (10:07)
--- NOTE | 2019-03-17 14:52 | PDOC PROGRESS REPORT ---
Subjective Progress Note for:: 03/17/19 Subjective:: I seen patient resting in recliner. Still complains of pleuritic chest pain. He also complains of constipation. He was given MiraLAX to no avail. This morning he has been given also max citrate but still has not moved his bowel. He is potential discharge for tomorrow. Reason For Visit: PNEUMONIA Physical Exam Vital Signs: Temp Pulse Resp BP Pulse Ox 97.7 F 68 16 150/72 H 92 03/17/19 12:00 03/17/19 14:00 03/17/19 13:56 03/17/19 12:00 03/17/19 13:56 Pulse Oximeter Continuous Start: 03/14/19 15:27 Freq: RTQ4 Status: Active Protocol: Document 03/17/19 12:00 [facility] (Rec: 03/17/19 12:32 [facility] [id number]) Pulse Oximetry Assessment Oxygen Saturation (92-100) 92 Oxygen Delivery Method Room Air Fraction of Inspired Oxygen (FIO2) 21 Equipment Usage Equipment in Use Continuous SpO2 Machine # 4 Intake & Output 03/16/19 03/17/19 03/18/19 06:59 06:59 06:59 Intake Total 2510 2367 50 Balance 2510 2367 50 Weight 121 kg 122.2 kg General appearance: PRESENT: no acute distress Head exam: PRESENT: atraumatic Eye exam: PRESENT: conjunctiva pink Neck exam: ABSENT: carotid bruit, JVD, lymphadenopathy, thyromegaly Respiratory exam: PRESENT: wheezes Neurological exam: PRESENT: alert, awake, oriented to time, oriented to situation Results Laboratory Results: 03/17/19 03:05 03/17/19 03:05 03/17/19 03/17/19 03:05 03:05 WBC 14.7 H RBC 4.22 L Hgb 12.8 L Hct 38.8 MCV 92 MCH 30.4 MCHC 33.1 RDW 14.1 H Plt Count 235 Seg Neutrophils % Not Reportable Lymphocytes % Not Reportable Monocytes % Not Reportable Eosinophils % Not Reportable Basophils % Not Reportable Absolute Neutrophils Not Reportable Absolute Lymphocytes Not Reportable Absolute Monocytes Not Reportable Absolute Eosinophils Not Reportable Absolute Basophils Not Reportable Sodium 139.8 Potassium 5.5 H Chloride 102 Carbon Dioxide 25 Anion Gap 13 BUN 34 H Creatinine 1.19 Est GFR ( Amer) > 60 Est GFR (Non-Af Amer) > 60 Glucose 316 H Calcium 9.0 03/14/19 03/14/19 03/14/19 10:14 10:54 18:13 Creatine Kinase 410 H CK-MB (CK-2) 3.42 Troponin I < 0.012 < 0.012 03/15/19 00:46 Creatine Kinase CK-MB (CK-2) Troponin I < 0.012 Impressions: Ribs w/Chest X-Ray 03/14/19 09:40 IMPRESSION: NO PNEUMOTHORAX. NO DISPLACED RIB FRACTURES. Chest CT 03/14/19 10:15 IMPRESSION: Bibasilar parenchymal opacities with a typical appearance of an inflammatory or infectious process. No identified rib fractures. Moderate coronary artery calcification. Assessment and Plan - Diagnosis (1) Bilateral pneumonia Is this a current diagnosis for this admission?: Yes Plan: Continue current antibiotics. (2) Acute hypoxemic respiratory failure Is this a current diagnosis for this admission?: Yes Plan: Improving. (3) COPD exacerbation Is this a current diagnosis for this admission?: Yes Plan: Continue supplemental oxygen, bronchodilators and antibiotics (4) Contusion of rib on left side Qualifiers: Encounter type: initial encounter Qualified Code(s): S20.212A - Contusion of left front wall of thorax, initial encounter Is this a current diagnosis for this admission?: Yes Plan: Continue supportive management. (5) Coronary artery disease Is this a current diagnosis for this admission?: Yes Plan: No anginal symptoms. (6) Hypothyroidism Qualifiers: Hypothyroidism type: acquired Qualified Code(s): E03.9 - Hypothyroidism, unspecified Is this a current diagnosis for this admission?: Yes Plan: Continue Synthroid (7) Hypertension Qualifiers: Hypertension type: essential hypertension Qualified Code(s): I10 - Essential (primary) hypertension Is this a current diagnosis for this admission?: Yes Plan: Continue current regimen (8) Constipation Is this a current diagnosis for this admission?: Yes Plan: Patient failed to respond to MiraLAX and mag citrate. Diabetes opioid induced constipation. I will try him with a dose of naltrexone
[2019-03-17] MEDS ORDERED: LACTULOSE SYRUP 20 GM/30 ML UDCUP PO ONE (14:58)
[2019-03-17] MEDS: ASPIRIN 81 MG TABLET, ENT COATED PO SCH (22:28)
[2019-03-17] MEDS: ATORVASTATIN CALCIUM 20 MG TABLET PO SCH (22:29)
[2019-03-18] MEDS: IPRATROPIUM/ALBUTEROL 0.5-2.5 MG/3 ML AMPUL NEB SCH ×3 (01:57→13:57)
[2019-03-18] MEDS: METHYLPREDNISOLONE INJ 125 MG/2 ML SDV IV SCH (06:59)
[2019-03-18] MEDS: BUDESONIDE NEB 0.5 MG/2 ML AMPUL NEB SCH (08:46)
[2019-03-18 08:48] VITALS: BP 148/64
[2019-03-18] MEDS: CEFTRIAXONE SODIUM 1,000 MG in NORMAL SALINE 50 ML IV SCH (09:34)
[2019-03-18] MEDS: ENOXAPARIN SODIUM INJ 40 MG/0.4 ML DISP.SYRIN SUBCUT SCH (09:34)
[2019-03-18] MEDS: FAMOTIDINE 20 MG TABLET PO SCH (09:34)
[2019-03-18] MEDS: GUAIFENESIN 600 MG TABLET.SA PO SCH (09:34)
[2019-03-18] MEDS: POLYETHYLENE GLYCOL 3350 POWDER 17 GM/1 PACKET PO SCH (09:35)
[2019-03-18] MEDS: DOCUSATE SODIUM 100 MG CAPSULE PO PRN (09:37)
[2019-03-18] MEDS ORDERED: AZITHROMYCIN 250 MG TABLET PO SCH (10:00)
[2019-03-18] MEDS ORDERED: LACTULOSE SYRUP 20 GM/30 ML UDCUP PO ONE (10:30)
--- NOTE | 2019-03-18 11:53 | PDOC DISCHARGE SUMMARY ---
General - Admit/Disc Date/PCP Admission Date/Primary Care Provider: 03/14/19 15:19 NO LOCALMD Discharge Date: 03/18/19 - Discharge Diagnosis (1) Bilateral pneumonia Is this a current diagnosis for this admission?: Yes (2) Acute hypoxemic respiratory failure Is this a current diagnosis for this admission?: Yes (3) COPD exacerbation Is this a current diagnosis for this admission?: Yes (4) Contusion of rib on left side Is this a current diagnosis for this admission?: Yes (5) Coronary artery disease Is this a current diagnosis for this admission?: Yes (6) Hypothyroidism Is this a current diagnosis for this admission?: Yes (7) Hypertension Is this a current diagnosis for this admission?: Yes (8) Constipation Is this a current diagnosis for this admission?: Yes - Additional Information Resuscitation Status: Do Not Resuscitate Home Medications: No Home Medications 03/14/19 History of Present Illness History of Present Illness: SARA MARTEL is a 63 year old male patient sitting on the bed getting a nebulizer treatment. He is extremely talkative. Coarse rhonchi are audible. Patient reports that he has bad knees. He stumbled and fell and hit his left side on the arm of the couch on . He stated that Saturday morning approximately 3 AM he experienced shaking chills. His left ribs have been very sore. He developed increasing shortness of breath and a congested cough. When he realized that his shortness of breath was worsening and his left chest pain/rib pain was not getting better he decided to present to the emergency department. Assessment revealed acute kidney injury, hypoxic respiratory failure and pneumonia. He had an elevated white blood cell count. He was refe rred to the hospital service for admission. Hospital Course Hospital Course: This is a 61 years old male patient was past medical history of [place] artery disease, myocardial infarction and status post stent placement, COPD and everyday smoker presented with chief complaint of increased shortness of breath was pleuritic chest pain. The pleuritic chest pain is explained by injury to his ribs. His chest x-ray is negative for rib fracture. His chest x- ray was reported as bibasilar parenchymal opacities which is typical appearance of an inflammatory or infectious process. Patient has been treated with Zithromax and ceftriaxone. I seen patient sitting up on recliner. He is awake alert and oriented. He reports his cigarettes much relief after he has large bowel movement. His vital signs and blood works are within normal limits. Amrit millan is stable enough to go home today. I will continue his home medication and I will send him with Zithromax 500 mg p.o. daily for 5 days. Patient advised to keep up with this appointment Physical Exam Vital Signs: Temp Pulse Resp BP Pulse Ox 97.7 F 65 18 148/64 H 94 03/18/19 08:00 03/18/19 08:46 03/18/19 08:46 03/18/19 08:00 03/18/19 08:46 Pulse Oximeter Continuous Start: 03/14/19 15:27 Freq: RTQ4 Status: Active Protocol: Document 03/18/19 08:46 [facility] (Rec: 03/18/19 08:56 [facility] [id number]) Pulse Oximetry Assessment Oxygen Saturation (92-100) 94 Oxygen Delivery Method Room Air Fraction of Inspired Oxygen (FIO2) 21 Equipment Usage Equipment in Use Continuous SpO2 Machine # 4 Intake & Output 03/17/19 03/18/19 03/19/19 06:59 06:59 06:59 Intake Total 2367 1944 Balance 2367 1944 Weight 122.2 kg 122.2 kg General appearance: PRESENT: no acute distress, well-developed, well-nourished Head exam: PRESENT: atraumatic, normocephalic Eye exam: PRESENT: conjunctiva pink, EOMI, PERRLA. ABSENT: scleral icterus Ear exam: PRESENT: normal external ear exam Mouth exam: PRESENT: moist, tongue midline Neck exam: ABSENT: carotid bruit, JVD, lymphadenopathy, thyromegaly Respiratory exam: PRESENT: clear to auscultation byron. ABSENT: rales, rhonchi, wheezes Cardiovascular exam: PRESENT: RRR. ABSENT: diastolic murmur, rubs, systolic murmur Pulses: PRESENT: normal dorsalis pedis pul Vascular exam: PRESENT: normal capillary refill GI/Abdominal exam: PRESENT: normal bowel sounds, soft. ABSENT: distended, guar ding, mass, organolmegaly, rebound, tenderness Rectal exam: PRESENT: deferred Extremities exam: PRESENT: full ROM. ABSENT: calf tenderness, clubbing, pedal edema Neurological exam: PRESENT: alert, awake, oriented to person, oriented to place, oriented to time, oriented to situation, CN II-XII grossly intact. ABSENT: motor sensory deficit Psychiatric exam: PRESENT: appropriate affect, normal mood. ABSENT: homicidal ideation, suicidal ideation Skin exam: PRESENT: dry, intact, warm. ABSENT: cyanosis, rash Results Laboratory Results: 03/17/19 03:05 03/17/19 03:05 03/14/19 03/14/19 03/14/19 10:14 10:54 18:13 Creatine Kinase 410 H CK-MB (CK-2) 3.42 Troponin I < 0.012 < 0.012 03/15/19 00:46 Creatine Kinase CK-MB (CK-2) Troponin I < 0.012 Impressions: Ribs w/Chest X-Ray 03/14/19 09:40 IMPRESSION: NO PNEUMOTHORAX. NO DISPLACED RIB FRACTURES. Chest CT 03/14/19 10:15 IMPRESSION: Bibasilar parenchymal opacities with a typical appearance of an inflammatory or infectious process. No identified rib fractures. Moderate coronary artery calcification. Qualifiers - * PATIENT BEING DISCHARGED WITH ANY OF THE FOLLOWING DIAGNOSIS: No Acute Heart Failure Is this a Heart Failure Patient?: No
[2019-03-19] MEDS ORDERED: CEFTRIAXONE SODIUM 1,000 MG in DEXTROSE 5%-WATER 50 ML IV SCH (10:00)
== END 2019-03-18 16:28 | disposition home or self-care (01) | DRG 193 ==
LOC: ER 08:54 → UNDOADMIN 15:19 → EH 15:19 → 4N 17:46
PROVIDERS: ADMIT Hospitalist; ATTEND Hospitalist
PROC: 3E0F73Z Introduction of Anti-inflammatory into Respiratory Tract, Via Natural or Artificial Opening (ICD-10-PCS; principal; 2019-03-14)
DX: J18.9 Pneumonia, unspecified organism (principal); J96.01 Acute respiratory failure with hypoxia; J44.1 Chronic obstructive pulmonary disease with (acute) exacerbation; J44.0 Chronic obstructive pulmonary disease with (acute) lower respiratory infection; N17.9 Acute kidney failure, unspecified; S20.212A Contusion of left front wall of thorax, initial encounter; I25.10 Atherosclerotic heart disease of native coronary artery without angina pectoris; E03.9 Hypothyroidism, unspecified; I10 Essential (primary) hypertension; K59.00 Constipation, unspecified; F17.210 Nicotine dependence, cigarettes, uncomplicated; K59.01 Slow transit constipation; E66.9 Obesity, unspecified; W01.0XXA Fall on same level from slipping, tripping and stumbling without subsequent striking against object, initial encounter; I25.2 Old myocardial infarction; Z95.5 Presence of coronary angioplasty implant and graft; Z60.2 Problems related to living alone; Z66 Do not resuscitate; Z82.49 Family history of ischemic heart disease and other diseases of the circulatory system; Z79.890 Hormone replacement therapy
CPT/HCPCS: 36415; 71250; 80048; 80053; 80061; 82550; 82553; 82803; 84484; 85025; 87040; 93005; 93010; 94640; 94667; 94668; 94762; 94799; 96365; 96366; 96375; 99285; 99406; J0456; J0696; J1650; J1885; J2270; J2405; J2930; J3490; J7060; J7120; J7620